=== PATIENT | male | born 1955 | race American Indian/Alaskan Native ===

== ENCOUNTER 2020-03-07 12:35 | Emergency (ER) | payer MEDICARE ==
--- NOTE | 2020-03-07 13:10 | Emergency Department Report ---
ED CPR HPI - General Chief Complaint: Cardiac Arrest/CPR Stated Complaint: CARDIAC ARREST Time Seen by Provider: 03/07/20 12:35 Source: EMS Mode of arrival: Stretcher Limitations: Other - History of Present Illness Initial Comments: 65-year-old male presents from dialysis with cardiac arrest. Patient was in the beginning stages of his treatment and was less responsive with staff 30 minutes prior to being found unresponsive in a dialysis chair. EMS received a call at 11:43 AM and at the scene by 11:51 AM. Patient initially was found in asystole. CPR was initiated. Patient then went into V. fib/V. tach and received 4 shocks and 300 mg of amiodarone. During resuscitation efforts patient also received 5 epinephrines, 1 amp of sodium bicarb, 1 amp of calcium and had Accu-Chek in the 100s. Patient arrived to the ED with PEA arrest intubated with LMA. - Related Data Allergies Allergy/AdvReac Type Severity Reaction Status Date / Time No Known Allergies Allergy Unverified 03/07/20 12:39 ED Review of Systems ROS: Stated complaint: CARDIAC ARREST Other details as noted in HPI Comment: All other systems reviewed and negative ED Past Medical Hx - Past Medical History Hx Hypertension: Yes Hx Renal Disease: Yes ED Physical Exam - General Limitations: Other - Other Other exam information: General: Unresponsive Head: Atraumatic Eyes: Pupils fixed and dilated ENT: Orally intubated with LMA Neck: Normal appearance Chest: No spontaneous respiration, right chest wall dialysis access CV: Pulseless no audible heartbeat Abdomen: Soft, nondistended Back: Normal inspection Extremity: Right metatarsal amputation, left BKA Neuro: GCS equals 3 Skin: No rash ED Medical Decision Making - Medical Decision Making Patient arrived here at 12:30 PM still in PEA arrest. CPR continued. Patient received a dose of epinephrine, chest compressions, supplemental oxygenation via LMA. Patient remained in PEA arrest with total downtime approximately 1 hour. Pt remained in PEA, fixed dilated pupils. time of 12:40pm Critical Care Time: Yes Critical care time in (mins) excluding proc time.: 10 Critical care attestation.: If time is entered above; I have spent that time in minutes in the direct care of this critically ill patient, excluding procedure time. ED Disposition Clinical Impression: Cardiopulmonary arrest Disposition: DC-20 Is pt being admited?: No Condition: Critical Time of Disposition: 12:50
[2020-03-07] MEDS ORDERED: EPINEPHrine 1 MG/10 ML SYRINGE ONE ×2 (16:22→20:52)
== END 2020-03-07 17:08 ==
LOC: ED 12:35
DX: I46.9 Cardiac arrest, cause unspecified (principal); I10 Essential (primary) hypertension; Z87.448 Personal history of other diseases of urinary system
CPT/HCPCS: 92950; 99285; J0171